=== PATIENT | male | born 1955 | race African-American/Black ===

== ENCOUNTER 2018-09-05 23:58 | Emergency (ER) | payer OTHER ==
[2018-09-06 00:13] VITALS: BP 112/77; PULSE 105; TEMP 98.7; BMI 34.0
[2018-09-06] MEDS ORDERED: SODIUM CHLORIDE 500 ML IV STA (00:14)
[2018-09-06] MEDS ORDERED: ASPIRIN 325 MG TABLET PO ONE (00:14)
--- NOTE | 2018-09-06 00:25 | PDOC ---
History of Present Illness - General Chief Complaint: Chest Pain Stated Complaint: FALL/BACK LACERATION/CHESTPAIN Time Seen by Provider: 09/06/18 00:14 History Source: Patient Exam Limitations: No Limitations - History of Present Illness Initial Comments: 09/06/18 00:20 62YOM with h/o CAD (s/p MIx4 per his report), HTN, HLD, NIDDM, pulmonary embolism, DVTs, and Doss's disease, who p/w gradual onset substernal chest pressure while he was laying down resting tonight. He stood up to use the restroom because as the pain ramped up he began to feel nauseated and thought he was going to vomit. On the way to the restroom he fell and lacerated his lower back on glass. Notes worsening chest pain, and nausea, states this feels "very similar" to his prior [place]. Took one NTG at home without relief. Did not take ASA at home after the onset. Not on daily ASA regimen. Past History - Past Medical History Allergies/Adverse Reactions: Allergies Allergy/AdvReac Type Severity Reaction Status Date / Time egg Allergy Verified 09/06/18 00:11 Fish Containing Products Allergy Verified 09/06/18 00:11 peanut Allergy Verified 09/06/18 00:11 penicillin V [Penicillin V] Allergy Verified 09/06/18 00:11 shellfish derived Allergy Verified 09/06/18 00:11 Whole wheat Allergy Unknown Hives Uncoded 09/06/18 00:11 NUTS Allergy Uncoded 09/06/18 00:11 Home Medications: Ambulatory Orders Albuterol Sulfate Inhaler - [Ventolin HFA Inhaler -] 1 - 2 inh IH Q4H PRN #0 inh 05/11/13 Allopurinol [Zyloprim -] 100 mg PO DAILY #30 tablet 05/11/13 Amlodipine Besylate [Norvasc -] 10 mg PO DAILY #30 tablet 05/11/13 Atorvastatin Ca [Lipitor] 80 mg PO HS #30 tab 05/11/13 Bupropion HBr [Aplenzin] 150 mg PO BID #30 tab.sr.24h 05/11/13 Clobetasol Prop 0.05% Top Cr [Temovate (Nf)] 0.05 gm TP BID PRN #1 tube Clopidogrel Bisulfate [Plavix -] 75 mg PO DAILY #30 tablet 05/11/13 Cyclobenzaprine HCl [Flexeril -] 10 mg PO TID PRN #90 tablet 05/11/13 Enalapril Maleate [Vasotec -] 10 mg PO DAILY #30 tablet 05/11/13 Escitalopram Oxalate [Lexapro -] 20 mg PO DAILY #30 tablet 05/11/13 Gabapentin [Neurontin -] 300 mg PO DAILY #0 capsule 05/11/13 Insulin (Novolog) [Novolog Flexpen -] 0 units SQ TIDAC #0 pen 05/11/13 Zolpidem Tartrate [Ambien] 10 mg PO HS PRN #0 tablet 05/11/13 Carvedilol [Coreg] 50 mg PO BID 12/11/17 Glipizide [Glucotrol -] 10 mg PO BID 12/11/17 Insulin (Levemir) [Levemir Flexpen -] 40 units SQ BID 12/11/17 Methotrexate Sodium [Methotrexate] 2.5 mg PO ASDIR 12/11/17 Oxycodone HCl/Acetaminophen [Percocet 5-325 mg Tablet] 1 - 2 tab PO PRN PRN 04/20 Clindamycin [Cleocin -] 300 mg PO Q6HPO #28 capsule 09/06/18 Anemia: No Cardiac Disorders: Yes COPD: No Diabetes: Yes HTN: Yes Psychiatric Problems: Yes (DEPRESSION) - Surgical History Cardiac Surgery: Yes (2 stents) Orthopedic Surgery: Yes (R. Ankle) - Suicide/Smoking/Psychosocial Hx Smoking History: Never smoked Have you smoked in the past 12 months: No Number of Cigarettes Smoked Daily: 1 Information on smoking cessation initiated: No 'Breaking Loose' booklet given: 05/07/13 Hx Alcohol Use: No Drug/Substance Use Hx: No Hx Substance Use Treatment: No Cardiac Specific PMH - Complaint Specific PMHX Pacemaker: Yes Review of Systems - Review of Systems Able to Perform ROS?: Yes Comments:: 09/06/18 00:25 GEN: no fever, chills, malaise, generalized weakness, or weight change HEENT: no ear pain, sore throat, vision change, or eye pain CV: chest pain, lightheadedness, no palpitations, syncope, or edema RESP: no cough, wheezing, or SOB GI: nausea, no abdominal pain, vomiting, diarrhea, constipation, or white/black/ bloody stool : no dysuria, hematuria, incontinence, retention, bleeding, or discharge MSK: no neck/back pain, muscle weakness/pain, or joint swelling/pain NEURO: no headache, seizure, vertigo, numbness, tingling, or focal weakness PSYCH: no substance use, no behavior change SKIN: no jaundice, no rash ROS otherwise negative except as noted in HPI *Physical Exam - Vital Signs Last Vital Signs Temp Pulse Resp BP Pulse Ox 98.7 F 105 H 20 112/77 99 09/06/18 00:12 09/06/18 00:12 09/06/18 00:12 09/06/18 00:12 09/06/18 00:12 - Physical Exam Comments: 09/06/18 00:26 GENERAL: nontoxic-appearing, A/Ox4, mild distress, answers questions appropriately, appears frustrated HEENT: bilateral exophthalmos, PERRLA, EOMI, moist mucous membranes NECK/BACK: no midline ttp, no spinal stepoff or deformity, no hematoma, full ROM , neck supple CARDIOVASCULAR: regular rate/rhythm, normal S1S2, no MGR, strong peripheral pulses, capillary refill <2 seconds, extremities wwp, no edema LUNGS/RESPIRATORY: no respiratory distress, CTAB GI/ABDOMEN: protuberant but not tight, symmetric hlze-on-ymze, normoactive BS, soft, no ttp, no midline pulsatile masses : no CVA tenderness EXTREMITIES: no muscle atrophy, no acute deformity SKIN: LACERATRION, skin otherwise warm and dry, no pallor, no jaundice, no rash , no bruising, no skin breakdown, no cuts, no lesions NEUROLOGICAL: GCS 15, CN II-XII grossly intact, 5/5 strength proximally and distally, no facial droop Heart Score/ECG Review - History History: Moderately suspicious - Electrocardiogram EKG: Non specific repolarization disturbance - Age Age: 45-65 - Risk Factors Risk Factors Heart Score: Yes Hx Hypercholesterolemia, Yes Hx Hypertension, Yes Hx Diabetes, Yes Positive family hx of cardiac disease, Yes Hx Obesity Based on the list above the patient has:: >/=3 risk factors or Hx atherosclerotic disease #1 09/05/18 23:55 NSR, rate 99, normal axis and intervals, septal Q waves and small SHAVON similar to prior EKG. ED Treatment Course - LABORATORY CBC & Chemistry Diagram: 09/06/18 00:45 09/06/18 00:45 - ADDITIONAL ORDERS Additional order review: Laboratory Results 09/06/18 09/06/18 09/06/18 00:45 00:45 00:45 PT with INR INR PTT (Actin FS) 29.0 Sodium Cancelled Potassium Cancelled Chloride Cancelled Carbon Dioxide Cancelled Anion Gap Cancelled BUN Cancelled Creatinine Cancelled Creat Clearance w eGFR Cancelled Random Glucose Cancelled Calcium Cancelled Magnesium Cancelled Total Bilirubin Cancelled AST Cancelled ALT Cancelled Alkaline Phosphatase Cancelled Creatine Kinase Cancelled Troponin I Cancelled Total Protein Cancelled Albumin Cancelled Anti-A Titer Cancelled Blood Type Cancelled Antibody Screen Cancelled 09/06/18 00:45 PT with INR 13.00 INR 1.10 H PTT (Actin FS) Sodium Potassium Chloride Carbon Dioxide Anion Gap BUN Creatinine Creat Clearance w eGFR Random Glucose Calcium Magnesium Total Bilirubin AST ALT Alkaline Phosphatase Creatine Kinase Troponin I Total Protein Albumin Anti-A Titer Blood Type Antibody Screen 09/06/18 00:45 RBC 4.28 MCV 98.7 H MCHC 34.6 RDW 14.1 D MPV 8.0 D Neutrophils % 49.9 Lymphocytes % 34.8 Monocytes % 9.5 Eosinophils % 4.5 Basophils % 1.3 D - RADIOLOGY Radiology Studies Ordered: Category Date Time Status CHEST X-RAY PORTABLE* [RAD] Stat Radiology 09/06/18 00:15 Taken - Medications Given in the ED: ED Medications Discontinued Medications Generic Name Dose Route Start Last Admin Trade Name Freq PRN Reason Stop Dose Admin Aspirin 325 mg 09/06/18 00:14 09/06/18 00:31 Asa - PO 09/06/18 00:15 325 mg ONCE ONE Administration Bacitracin 1 applic 09/06/18 01:49 09/06/18 01:56 Bacitracin - TP 09/06/18 01:50 1 applic ONCE ONE Administration Sodium Chloride 500 mls @ 500 mls/hr 09/06/18 00:14 09/06/18 01:06 Normal Saline - IV 09/06/18 01:13 500 mls/hr ASDIR STA Administration Morphine Sulfate 2 mg 09/06/18 01:32 09/06/18 01:55 Morphine Injection - IVPUSH 09/06/18 01:33 2 mg ONCE ONE Administration Sodium Chloride 500 ml 09/06/18 01:32 09/06/18 01:56 Normal Saline - IV 09/06/18 01:33 500 ml ONCE ONE Administration Medical Decision Making - Medical Decision Making 09/06/18 00:28 Adult Pt p/w chest pain. Initial Vital Signs Temp Pulse Resp BP Pulse Ox 98.7 F 105 H 20 112/77 99 09/06/18 00:12 09/06/18 00:12 09/06/18 00:12 09/06/18 00:12 09/06/18 00:12 Exam: As noted in Physical Exam section. DDX IBNLT: ACS, pericarditis, tamponade, aortic dissection, AAA, PTX, PE, esophageal tear, esophagitis (e.g. pill, infectious), esophageal stricture, esophageal FB, gastritis, PUD, pancreatitis, cholecystitis, cholangitis, colitis , bowel perforation, PNA/bronchitis, pleurisy, pleuritis, MVP, pulmonary HTN, musculoskeletal, panic/anxiety, etc. W/U ordered: CBCD CMP Troponin CK CKMB Coags T&S UA UCx EKG CXR TX ordered: monitor, ASA 324, O2 via NC EKG: Reviewed; results as noted in ECG Review section. Laboratory Tests 09/06/18 09/06/18 09/06/18 00:45 00:45 00:45 WBC 5.9 RBC 4.28 Hgb 14.6 Hct 42.3 MCV 98.7 H MCH 34.1 H MCHC 34.6 RDW 14.1 D Plt Count 249 D MPV 8.0 D Absolute Neuts (auto) 2.9 Neutrophils % 49.9 Lymphocytes % 34.8 Monocytes % 9.5 Eosinophils % 4.5 Basophils % 1.3 D Nucleated RBC % 0 PT with INR 13.00 INR 1.10 H PTT (Actin FS) Sodium Cancelled Potassium Cancelled Chloride Cancelled Carbon Dioxide Cancelled Anion Gap Cancelled BUN Cancelled Creatinine Cancelled Creat Clearance w eGFR Cancelled Random Glucose Cancelled Calcium Cancelled Magnesium Cancelled Total Bilirubin Cancelled AST Cancelled ALT Cancelled Alkaline Phosphatase Cancelled Creatine Kinase Cancelled Troponin I Cancelled Total Protein Cancelled Albumin Cancelled Anti-A Titer Blood Type Antibody Screen 09/06/18 09/06/18 00:45 00:45 WBC RBC Hgb Hct MCV MCH MCHC RDW Plt Count MPV Absolute Neuts (auto) Neutrophils % Lymphocytes % Monocytes % Eosinophils % Basophils % Nucleated RBC % PT with INR INR PTT (Actin FS) 29.0 Sodium Potassium Chloride Carbon Dioxide Anion Gap BUN Creatinine Creat Clearance w eGFR Random Glucose Calcium Magnesium Total Bilirubin AST ALT Alkaline Phosphatase Creatine Kinase Troponin I Total Protein Albumin Anti-A Titer Cancelled Blood Type Cancelled Antibody Screen Cancelled Patient refusing tDaP despite our strong recommendation. The patient states he does not want to stay for remaining cardiac workup and admission. I have a conversation with the patient about the potential risk of going home without thorough workup. He understands he may be having a heart attack or other serious cause of his continued chest pain. I express our strong recommendation that he stay for our initially planned ED workup and admission. He adamantly refuses, states wants to go home, walking out of the department. He has left the department before I am able to go through AMA paperwork with him. *DC/Admit/Observation/Transfer Diagnosis at time of Disposition: Fall from ground level, Skin abrasion Chest pain Qualifiers: Chest pain type: unspecified Qualified Code(s): R07.9 - Chest pain, unspecified - Discharge Dispostion Disposition: ELOPED Condition at time of disposition: Unchanged/Unknown Decision to Admit order: No - Prescriptions Prescriptions: Clindamycin [Cleocin -] 300 mg PO Q6HPO #28 capsule - Referrals Referrals: Rachell Meier [Primary Care Provider] - - Patient Instructions - Post Discharge Activity
[2018-09-06] MEDS ORDERED: ASPIRIN 81 MG CHEWABLE TABLETS ONE (00:28)
[2018-09-06 01:07] LABS: BASO % 1.3 % (0-2.0); EOS % 4.5 % (0-4.5); HEMATOCRIT 42.3 % (35.4-49); HEMOGLOBIN 14.6 GM/dL (11.7-16.9); LYMPH % 34.8 % (8-40); MCH 34.1 pg (25.7-33.7); MCHC 34.6 g/dl (32.0-35.9); MEAN CELL VOLUME 98.7 fl (80-96); MONO % 9.5 % (3.8-10.2); NEUT % 49.9 % (42.8-82.8); PLATELET COUNT 249 K/MM3 (134-434); RBC 4.28 M/mm3 (4.00-5.60); RDW 14.1 % (11.9-15.9); WHITE BLOOD COUNT 5.9 K/mm3 (4.0-10.0)
[2018-09-06] MEDS ORDERED: BACITRACIN 0.9 GM PACKET ONE (01:30)
[2018-09-06] MEDS ORDERED: SODIUM CHLORIDE 0.9% 500 ML INFUS.BAG IV ONE (01:32)
[2018-09-06] MEDS ORDERED: morphine CARPU-JECT 2 MG/1 ML DISP.SYRIN IVPUSH ONE (01:32)
[2018-09-06] MEDS ORDERED: DIPHTH,PERTUSS(ACELL),TET 0.5 ML DISP.SYRIN IM ONE ×2 (01:33→01:52)
[2018-09-06] MEDS ORDERED: MORPHINE SULFATE 2 MG/ML VIAL ONE (01:47)
[2018-09-06] MEDS ORDERED: BACITRACIN 15 GM TUBE TOPICAL OINTMENT TP ONE (01:49)
--- NOTE | 2018-09-06 01:49 | PDOC ---
Attending Attestation - HPI HPI: 09/06/18 01:56 The patient is a 62 year old male, with a significant PMH of CAD (s/p MIx4 per his report), HTN, HLD, NIDDM, pulmonary embolism, DVTs, and Doss's disease, who presents to the emeregncy department for evaluation of left sided chest pain , which began while lying down. He notes associated nausea which is similar to his past MIs. He states he went to go to the bathroom to vomit, when he got lightheaded, and fell back onto a glass table, cutting hit buttox. Patient reports taking one nitroglycerin at home with no relief. The patient denies chest pain, shortness of breath, headache and dizziness. Denies fever, chills, nausea, vomit, diarrhea and constipation. Denies dysuria, frequency, urgency and hematuria. Allergies: NKA Social history: No reported PCP: Dr. Meier - Physicial Exam PE: 09/06/18 01:56 GENERAL: Overweight. Awake, alert, and fully oriented, in no acute distress HEAD: No signs of trauma EYES: Protruding eyeballs not secondary to hyperthyroidism. PERRLA, EOMI, sclera anicteric, conjunctiva clear ENT: Auricles normal inspection, hearing grossly normal, nares patent, oropharynx clear without exudates. Moist mucosa NECK: Normal ROM, supple, no lymphadenopathy, JVD, or masses LUNGS: Breath sounds equal, clear to auscultation bilaterally. No wheezes, and no crackles HEART: Regular rate and rhythm, normal S1 and S2, no murmurs, rubs or gallops ABDOMEN: Soft, nontender, normoactive bowel sounds. No guarding, no rebound. No masses BACK: (+) small subcentimeter glass shard to right buttock. (+)shallow cuts to butt EXTREMITIES: (+)1cm laceration to left upper thigh. Normal range of motion, no edema. No clubbing or cyanosis. No cords, erythema, or tenderness NEUROLOGICAL: Cranial nerves II through XII grossly intact. Normal speech, normal gait SKIN: (+)lesions due to ehraclio disease. Warm, Dry, normal turgor, no rashes. <Makenzie Smith - Last Filed: 09/06/18 01:56> - Resident Resident Name: Sirisha Khan - ED Attending Attestation I have performed the following: I have examined & evaluated the patient, The case was reviewed & discussed with the resident, I agree w/resident's findings & plan - Medical Decision Making 09/06/18 01:40 Pt has small glass shards that I removed from his buttock area. He complains of chest pain. He is asking for relief of the chest pain. 09/06/18 02:47 Pt given morphine; however he is refusing another blood draw. Pt's first enzyme was hemolyzed. Pt wants to sign out. <Marcie Marley - Last Filed: 09/06/18 02:48> Attestations - Attestations 09/06/18 01:56 Documentation prepared by Makenzie Smith, acting as medical claims processor for Marcie Marley MD. <Makenzie Smith - Last Filed: 09/06/18 01:56>
[2018-09-06 02:04] LABS: INR 1.1 (0.83-1.09)
--- NOTE | 2018-09-06 11:39 | EKG ---
Test Reason : Blood Pressure : / mmHG Vent. Rate : 099 BPM Atrial Rate : 099 BPM P-R Int : 156 ms QRS Dur : 092 ms QT Int : 344 ms P-R-T Axes : 054 002 094 degrees QTc Int : 441 ms POOR DATA QUALITY, INTERPRETATION MAY BE ADVERSELY AFFECTED NORMAL SINUS RHYTHM POSSIBLE LEFT ATRIAL ENLARGEMENT SEPTAL INFARCT (CITED ON OR BEFORE 19-MAR-2010) ABNORMAL ECG WHEN COMPARED WITH ECG OF 11-DEC-2017 12:39, NONSPECIFIC T WAVE ABNORMALITY NO LONGER EVIDENT IN INFERIOR LEADS Confirmed by REFUGIO RANGEL, MERLY ([id number]) on 09/06/2018 11:39:31 AM Referred By: Confirmed By:MERLY HUFF MD
== END 2018-09-06 03:45 | disposition left against medical advice (07) ==
LOC: JER 23:58
PROC: 3E0337Z Introduction of Electrolytic and Water Balance Substance into Peripheral Vein, Percutaneous Approach (ICD-10-PCS; principal; 2018-09-05)
PROC: 3E033NZ Introduction of Analgesics, Hypnotics, Sedatives into Peripheral Vein, Percutaneous Approach (ICD-10-PCS; 2018-09-05)
DX: R07.9 Chest pain, unspecified (principal); S31.812A Laceration with foreign body of right buttock, initial encounter; S71.122A Laceration with foreign body, left thigh, initial encounter; W01.110A Fall on same level from slipping, tripping and stumbling with subsequent striking against sharp glass, initial encounter; Y93.89 Activity, other specified; Y92.038 Other place in apartment as the place of occurrence of the external cause; Y99.8 Other external cause status; I25.10 Atherosclerotic heart disease of native coronary artery without angina pectoris; I10 Essential (primary) hypertension; Z95.5 Presence of coronary angioplasty implant and graft; E11.9 Type 2 diabetes mellitus without complications; Z79.4 Long term (current) use of insulin; E78.00 Pure hypercholesterolemia, unspecified; Z86.718 Personal history of other venous thrombosis and embolism; Z86.711 Personal history of pulmonary embolism; Z79.01 Long term (current) use of anticoagulants; F32.9 Major depressive disorder, single episode, unspecified
CPT/HCPCS: 36415; 71045-TC-FY; 85025; 85610; 85730; 93005; 93010; 96361; 96374; 99283-25

== ENCOUNTER 2018-09-06 23:26 | Emergency (ER) | payer OTHER ==
--- NOTE | 2018-09-06 23:59 | PDOC ---
History of Present Illness - General Stated Complaint: INTOX Time Seen by Provider: 09/06/18 23:32 History Source: Old Records Exam Limitations: Other (combative, refusing medical attention) - History of Present Illness Initial Comments: 09/07/18 00:04 History obtained by triage notes and old records Pt is a 62yo M with PMH of CAD s/p stent/bypass, PE, DVT, HTN, NIDDM, Ricardo Disease BIBA for intoxication. Pt refusing to be seen and treated. Pt was found arguing and resisting security to be seen. Walked up ambulance bay Past History - Past Medical History Allergies/Adverse Reactions: Allergies Allergy/AdvReac Type Severity Reaction Status Date / Time egg Allergy Verified 09/06/18 00:11 Fish Containing Products Allergy Verified 09/06/18 00:11 peanut Allergy Verified 09/06/18 00:11 penicillin V [Penicillin V] Allergy Verified 09/06/18 00:11 shellfish derived Allergy Verified 09/06/18 00:11 Whole wheat Allergy Unknown Hives Uncoded 09/06/18 00:11 NUTS Allergy Uncoded 09/06/18 00:11 Home Medications: Ambulatory Orders Albuterol Sulfate Inhaler - [Ventolin HFA Inhaler -] 1 - 2 inh IH Q4H PRN #0 inh 05/11/13 Allopurinol [Zyloprim -] 100 mg PO DAILY #30 tablet 05/11/13 Amlodipine Besylate [Norvasc -] 10 mg PO DAILY #30 tablet 05/11/13 Atorvastatin Ca [Lipitor] 80 mg PO HS #30 tab 05/11/13 Bupropion HBr [Aplenzin] 150 mg PO BID #30 tab.sr.24h 05/11/13 Clobetasol Prop 0.05% Top Cr [Temovate (Nf)] 0.05 gm TP BID PRN #1 tube Clopidogrel Bisulfate [Plavix -] 75 mg PO DAILY #30 tablet 05/11/13 Cyclobenzaprine HCl [Flexeril -] 10 mg PO TID PRN #90 tablet 05/11/13 Enalapril Maleate [Vasotec -] 10 mg PO DAILY #30 tablet 05/11/13 Escitalopram Oxalate [Lexapro -] 20 mg PO DAILY #30 tablet 05/11/13 Gabapentin [Neurontin -] 300 mg PO DAILY #0 capsule 05/11/13 Insulin (Novolog) [Novolog Flexpen -] 0 units SQ TIDAC #0 pen 05/11/13 Zolpidem Tartrate [Ambien] 10 mg PO HS PRN #0 tablet 05/11/13 Carvedilol [Coreg] 50 mg PO BID 12/11/17 Glipizide [Glucotrol -] 10 mg PO BID 12/11/17 Insulin (Levemir) [Levemir Flexpen -] 40 units SQ BID 12/11/17 Methotrexate Sodium [Methotrexate] 2.5 mg PO ASDIR 12/11/17 Oxycodone HCl/Acetaminophen [Percocet 5-325 mg Tablet] 1 - 2 tab PO PRN PRN 04/20 Clindamycin [Cleocin -] 300 mg PO Q6HPO #28 capsule 09/06/18 Anemia: No Cardiac Disorders: Yes COPD: No Diabetes: Yes HTN: Yes Hypercholesterolemia: Yes Psychiatric Problems: Yes (DEPRESSION) - Surgical History Cardiac Surgery: Yes (2 stents) Orthopedic Surgery: Yes (R. Ankle) - Suicide/Smoking/Psychosocial Hx Smoking History: Never smoked Have you smoked in the past 12 months: No Number of Cigarettes Smoked Daily: 1 'Breaking Loose' booklet given: 05/07/13 Hx Alcohol Use: No Drug/Substance Use Hx: No Hx Substance Use Treatment: No Review of Systems - Review of Systems Able to Perform ROS?: No (pt left before medical ev) *Physical Exam - Physical Exam Comments: 09/07/18 00:06 Unable to perform, pt left before evaluation Medical Decision Making - Medical Decision Making 09/07/18 00:06 62yo M with PMH of CAD s/p stent/bypass, PE, DVT, DM, Ricardo Disease BIBA for intoxication according to triage note. Pt was here yesterday for chest pain and left AMA. pt walked out into ambulance bay. Security was holding pt behind but pt was resisting. Pt was offered medical screening but was refusing to be seen. Pt is walking with normal gait, no slurred speech, does not appear to be clinically intoxicated and therefore is able to make decisions. Pt left AMA *DC/Admit/Observation/Transfer Diagnosis at time of Disposition: Intoxication - Discharge Dispostion Disposition: AGAINST MEDICAL ADVICE - Referrals - Patient Instructions - Post Discharge Activity
== END 2018-09-06 23:59 | disposition left against medical advice (07) ==
LOC: JER 23:26
DX: Z53.21 Procedure and treatment not carried out due to patient leaving prior to being seen by health care provider (principal)

== ENCOUNTER 2018-10-10 21:01 | Emergency (ER) | payer OTHER ==
--- NOTE | 2018-10-10 21:15 | PDOC ---
Rapid Medical Evaluation Medical Evaluation: Allergies Allergy/AdvReac Type Severity Reaction Status Date / Time egg Allergy Verified 09/06/18 00:11 Fish Containing Products Allergy Verified 09/06/18 00:11 peanut Allergy Verified 09/06/18 00:11 penicillin V [Penicillin V] Allergy Verified 09/06/18 00:11 shellfish derived Allergy Verified 09/06/18 00:11 Whole wheat Allergy Unknown Hives Uncoded 09/06/18 00:11 NUTS Allergy Uncoded 09/06/18 00:11 I have performed a brief in-person evaluation of this patient. The patient presents with a chief complaint of: Hx of DM, MD x2, depression, skin cancer, PE (on Plavix and Xarelto) hx substernal dull CP along with SOB; started yesterday and got worse today; also states his sugar was 567 around 1 hr ago ; took 10 units of insulin and 50 units of Levemir after noting the sugar ; of note, patient was seen in ED last month for CP and had signed out AMA Pertinent physical exam findings: In NAD I have ordered the following: Labs, EKG, CXR The patient will proceed to the ED for further evaluation. 10/10/18 21:12
[2018-10-10 21:16] VITALS: TEMP 98.3; BMI 32.0
[2018-10-10] MEDS ORDERED: morphine CARPU-JECT 4 MG/1 ML DISP.SYRIN IVPUSH ONE (22:06)
[2018-10-10] MEDS ORDERED: ASPIRIN 81 MG CHEWABLE TABLETS PO ONE (22:09)
--- NOTE | 2018-10-10 22:10 | PDOC ---
History of Present Illness - General Chief Complaint: Chest Pain Stated Complaint: CHEST HURT Time Seen by Provider: 10/10/18 21:12 History Source: Patient Exam Limitations: No Limitations - History of Present Illness Initial Comments: 10/10/18 22:10 62 yo M with h/o CAD (ID x3), HTN, HLD, NIDDM, pulmonary embolism , DVTs (x3), and Doss's disease who presents with one day history of worsening chest pain. He describes 02/10 constant substernal chest pressure radiating to back. He states the pain has been worsening over time. Not associated with exertion and not relieved by nitro or rest. No aggrevating or alleviating factors. Associated with dysnea on exertion, diaphoresis and feeling of heaviness of his legs. He states he until recently he could walk 5 blocks and now has trouble with minimal physical activity. Denies palpitations, abdominal pain, nausea, vomiting, fever or chills. Timing/Duration: 24 hours Severity: moderate Associated Symptoms: reports: diaphoresis, shortness of breath Aspirin Received prior to arrival: Yes: 325 mg x 1, provided by ED Past History - Travel Traveled outside of the country in the last 30 days: No Close contact w/someone who was outside of country & ill: No - Past Medical History Allergies/Adverse Reactions: Allergies Allergy/AdvReac Type Severity Reaction Status Date / Time egg Allergy Verified 10/10/18 21:16 Fish Containing Products Allergy Verified 10/10/18 21:16 peanut Allergy Verified 10/10/18 21:16 penicillin V [Penicillin V] Allergy Verified 10/10/18 21:16 shellfish derived Allergy Verified 10/10/18 21:16 Whole wheat Allergy Unknown Hives Uncoded 10/10/18 21:16 NUTS Allergy Uncoded 10/10/18 21:16 Home Medications: Ambulatory Orders Albuterol Sulfate Inhaler - [Ventolin Hfa Inhaler -] 1 puff IH DAILY 10/10/18 Allopurinol [Zyloprim -] 100 mg PO DAILY 10/10/18 Amlodipine Besylate [Norvasc -] 5 mg PO DAILY 10/10/18 Atorvastatin Ca [Lipitor] 80 mg PO HS 10/10/18 Bupropion HCl [Wellbutrin Sr] 150 mg PO BID 10/10/18 Carvedilol [Coreg -] 25 mg PO BID 10/10/18 Clopidogrel Bisulfate [Plavix] 75 mg PO DAILY 10/10/18 Enalapril Maleate [Vasotec -] 10 mg PO DAILY 10/10/18 Escitalopram Oxalate [Lexapro -] 20 mg PO DAILY 10/10/18 Gabapentin 900 mg PO TID 10/10/18 Glipizide [Glipizide ER] 10 mg PO DAILY 10/10/18 Insulin (LOG) Aspart [NovoLOG -] 0 unit SQ 10/10/18 Insulin Detemir [Levemir Flextouch] 40 unit SQ BID 10/10/18 Methotrexate Sodium [Methotrexate] 2.5 mg PO DAILY 10/10/18 Rivaroxaban [Xarelto -] 20 mg PO DAILY 10/10/18 Trazodone HCl 150 mg PO DAILY 10/10/18 Anemia: No Cardiac Disorders: Yes (ID x 2, PE, DVT) COPD: No Diabetes: Yes HTN: Yes Hypercholesterolemia: Yes Psychiatric Problems: Yes (DEPRESSION) - Surgical History Cardiac Surgery: Yes (2 stents) Orthopedic Surgery: Yes (R. Ankle) - Suicide/Smoking/Psychosocial Hx Smoking History: Current some day smoker Have you smoked in the past 12 months: Yes Number of Cigarettes Smoked Daily: 3 Information on smoking cessation initiated: No 'Breaking Loose' booklet given: 05/07/13 Hx Alcohol Use: Yes (social) Drug/Substance Use Hx: No Hx Substance Use Treatment: No Review of Systems - Review of Systems Able to Perform ROS?: Yes Is the patient limited Palauan proficient: No Constitutional: Yes: Diaphoresis, Weakness. No: Chills, Fever HEENTM: No: Recent change in vision Respiratory: Yes: SOB with Exertion. No: Cough, Wheezing Cardiac (ROS): Yes: Chest Pain ABD/GI: Yes: Abdominal Distended. No: Abdominal cramping : No: Burning, Dysuria Musculoskeletal: No: Joint Swelling, Joint Stiffness Neurological: No: Headache, Paresthesia *Physical Exam - Vital Signs Last Vital Signs Temp Pulse Resp BP Pulse Ox 98.3 F 109 H 18 96/69 99 10/10/18 21:13 10/10/18 21:13 10/10/18 21:13 10/10/18 21:13 10/10/18 21:29 - Physical Exam General Appearance: Yes: Appropriately Dressed, Mild Distress HEENT: positive: ANAI, Normal ENT Inspection, Normal Voice Neck: positive: Trachea midline, Supple Respiratory/Chest: positive: Normal Breath Sounds, Crackles (fine crackles at bases). negative: Respiratory Distress, Accessory Muscle Use Cardiovascular: positive: S1, S2, Edema, Tachycardia. negative: JVD, Murmur Vascular Pulses: Dorsalis-Pedis (R): 2+, Doralis-Pedis (L): 2+ Gastrointestinal/Abdominal: positive: Normal Bowel Sounds, Tender, Soft. 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 Given history of multiple embolic events differential includes but not limited to ACS, PE, and Acute CHF. Will order cardiac profile, CBC, CMP and BNP. 10/11/18 00:37 Initial labs have returned wnl . However given his risk factors for embolic events the decision has been made to place patient on Observation to [facility]. However he as refused and would now like to leave AMA. PATIENT ADAMANTLY REFUSES HOSPITALIZATION AND WANTS TO LEAVE AGAINST MEDICAL ADVICE. I EXPLAINED TO PATIENT THAT AGAINST MEDICAL ADVICE IS DANGEROUS AND CAN LEAD TO WORSENING OF CONDITION, PERMANENT DISABILITY, AND EVEN . I USED LAY TERMINOLOGY. I ANSWERED ALL QUESTIONS. ITS CLEAR TO ME THAT HE UNDERSTANDS THE RISKS AND BENEFITS OF CONTINUOUS HOSPITAL STAY AND LEAVING AGAINST MEDICAL ADVISE. HE HAS THE CAPACITY TO MAKE HIS OWN DECISIONS. HE AGREES TO FOLLOW UP WITH HIS PRIMARY MEDICAL DOCTOR TOMORROW AND RETURN TO THE EMERGENCY DEPARTMENT IF SYMPTOMS WORSEN. *DC/Admit/Observation/Transfer Diagnosis at time of Disposition: Chest pain Qualifiers: Chest pain type: unspecified Qualified Code(s): R07.9 - Chest pain, unspecified - Referrals - Patient Instructions - Post Discharge Activity
[2018-10-10] MEDS ORDERED: morphine SULFATE 4 MG/ML VIAL ONE (22:12)
[2018-10-10] MEDS ORDERED: ASPIRIN 81 MG CHEWABLE TABLETS ONE (22:12)
[2018-10-10 22:22] LABS: BASO % 0.6 % (0-2.0); EOS % 4.3 % (0-4.5); HEMATOCRIT 45.2 % (35.4-49); HEMOGLOBIN 15.2 GM/dL (11.7-16.9); LYMPH % 36.4 % (8-40); MCH 32.6 pg (25.7-33.7); MCHC 33.7 g/dl (32.0-35.9); MEAN CELL VOLUME 96.7 fl (80-96); MEAN PLT VOLUME 8.5 fl (7.5-11.1); MONO % 9.9 % (3.8-10.2); NEUT % 48.8 % (42.8-82.8); PLATELET COUNT 241 K/MM3 (134-434); RBC 4.67 M/mm3 (4.00-5.60); RDW 13.8 % (11.9-15.9); WHITE BLOOD COUNT 5.5 K/mm3 (4.0-10.0)
[2018-10-10 23:00] LABS: ALBUMIN 3.8 g/dl (3.4-5.0); ALK PHOS 74 U/L (45-117); ANION GAP 12 MMOL/L (8-16); BILIRUBIN,TOTAL 0.4 mg/dL (0.2-1); BLOOD UREA NITROGEN 17 mg/dL (7-18); CALCIUM 9.3 mg/dL (8.5-10.1); CHLORIDE 98 mmol/L (98-107); CO2 22 mmol/L (21-32); CREATININE 1.8 mg/dL (0.55-1.3); POTASSIUM 4.2 mmol/L (3.5-5.1); SGOT/AST 24 U/L (15-37); SGPT/ALT 31 U/L (13-61); SODIUM 132 mmol/L (136-145); TOT PROT 6.6 g/dl (6.4-8.2)
[2018-10-10 23:04] LABS: GLUCOSE,RANDOM 500 mg/dL (74-106)
[2018-10-10] MEDS ORDERED: INSULIN (NOVOLOG) ASPART 100 UNITS/ML 10ML VIAL SQ ONE (23:08)
[2018-10-10] MEDS ORDERED: INSULIN REGULAR HUMAN 100 UNITS/ML *VIAL ONE (23:11)
[2018-10-10 23:28] VITALS: PULSE 88
--- NOTE | 2018-10-11 00:13 | PDOC ---
Documentation entered by Yisel Swan SCRIBE, acting as scribe for Marcie Marley MD. Marcie Marley MD: This documentation has been prepared by the philibe, Yisel Swan SCRIBE, under my direction and personally reviewed by me in its entirety. I confirm that the documentation accurately reflects all work, treatment, procedures, and medical decision making performed by me. Attending Attestation - Resident Resident Name: Franki Irwin - ED Attending Attestation I have performed the following: I have examined & evaluated the patient, The case was reviewed & discussed with the resident, I agree w/resident's findings & plan - HPI HPI: 10/10/18 23:17 The patient is a 63 year old male with a significant past medical history of CAD , DVTs, hypertension, hyperlipidemia, diabetes, pulmonary embolism and Ricardo disease who presents to the emergency department with chest pain for 2 days. The patient states that he experienced an sudden onset of 9/10 constant substernal chest pain, describes as pressure-like with radiation to his back. The patient says that his chest pain has worsened since yesterday prompting him to come to the ED. he reports some associated dyspnea on exertion, diaphoresis and leg heaviness. He states that he has been experiencing some increased difficulties with physical activity lately. The patient denies any relief with use of nitro or with rest. He denies any palpitations, abdominal pain, nausea, vomiting, diarrhea, constipation, fever or chills. The patient denies any other complaints. - Physicial Exam PE: GENERAL: Awake, alert, and fully oriented, in no acute distress HEAD: No signs of trauma EYES: PERRLA, EOMI, sclera anicteric, conjunctiva clear ENT: Auricles normal inspection, hearing grossly normal, nares patent, oropharynx clear without exudates. Moist mucosa NECK: Normal ROM, supple, no lymphadenopathy, JVD, or masses LUNGS: Breath sounds equal, clear to auscultation bilaterally. No wheezes, and no crackles HEART: Regular rate and rhythm, normal S1 and S2, no murmurs, rubs or gallops ABDOMEN: Soft, nontender, normoactive bowel sounds. No guarding, no rebound. No masses EXTREMITIES: Normal range of motion, no edema. No clubbing or cyanosis. No cords, erythema, or tenderness NEUROLOGICAL: Cranial nerves II through XII grossly intact. Normal speech, normal gait SKIN: Warm, Dry, normal turgor, no rashes or lesions noted. 10/11/18 00:13 - Medical Decision Making 10/11/18 00:22 Pt will be admitted for chest pain as a telemetry obs. 10/11/18 00:24 Pt is refusing to stay in the hospital and wants to sign AMA. He will be allowed to go, as he looks extremely comfortable
[2018-10-11 00:35] VITALS: BP 100/63
--- NOTE | 2018-10-11 11:41 | EKG ---
Test Reason : Blood Pressure : / mmHG Vent. Rate : 101 BPM Atrial Rate : 101 BPM P-R Int : 160 ms QRS Dur : 088 ms QT Int : 378 ms P-R-T Axes : 059 000 047 degrees QTc Int : 490 ms SINUS TACHYCARDIA POSSIBLE LEFT ATRIAL ENLARGEMENT SEPTAL INFARCT (CITED ON OR BEFORE 19-MAR-2010) ABNORMAL ECG WHEN COMPARED WITH ECG OF 05-SEP-2018 23:55, NO SIGNIFICANT CHANGE WAS FOUND Confirmed by BRENT RANGEL, YAMEL ([id number]) on 10/11/2018 11:41:16 AM Referred By: Confirmed By:YAMEL KENNEDY MD
== END 2018-10-11 01:10 | disposition left against medical advice (07) ==
LOC: JER 21:01
PROC: 3E033NZ Introduction of Analgesics, Hypnotics, Sedatives into Peripheral Vein, Percutaneous Approach (ICD-10-PCS; principal; 2018-10-10)
PROC: 3E013VG Introduction of Insulin into Subcutaneous Tissue, Percutaneous Approach (ICD-10-PCS; 2018-10-10)
DX: R07.9 Chest pain, unspecified (principal); I25.10 Atherosclerotic heart disease of native coronary artery without angina pectoris; I10 Essential (primary) hypertension; Z95.5 Presence of coronary angioplasty implant and graft; I25.2 Old myocardial infarction; E78.5 Hyperlipidemia, unspecified; E11.9 Type 2 diabetes mellitus without complications; Z79.4 Long term (current) use of insulin; F32.9 Major depressive disorder, single episode, unspecified; Z86.711 Personal history of pulmonary embolism; Z86.718 Personal history of other venous thrombosis and embolism; Z79.01 Long term (current) use of anticoagulants; Z85.828 Personal history of other malignant neoplasm of skin; F17.210 Nicotine dependence, cigarettes, uncomplicated
CPT/HCPCS: 36415; 71045-TC-FY; 80053; 83880; 84484; 85025; 93005; 93010; 96372; 96374; 99284-25

== ENCOUNTER 2019-01-17 09:35 | Emergency (ER) | payer OTHER ==
[2019-01-17 09:41] VITALS: BMI 32.7
[2019-01-17] MEDS ORDERED: SODIUM CHLORIDE 1,000 ML IV STA ×2 (09:59→14:13)
[2019-01-17] MEDS ORDERED: morphine CARPU-JECT 2 MG/1 ML DISP.SYRIN IVPUSH ONE ×3 (09:59→14:13)
[2019-01-17] MEDS ORDERED: MORPHINE SULFATE 2 MG/ML VIAL ONE ×3 (10:08→14:17)
[2019-01-17 10:33] LABS: BASO % 0.8 % (0-2.0); EOS % 10.7 % (0-4.5); HEMATOCRIT 42.4 % (35.4-49); HEMOGLOBIN 14.8 GM/dL (11.7-16.9); LYMPH % 31.1 % (8-40); MCH 34.7 pg (25.7-33.7); MCHC 34.9 g/dl (32.0-35.9); MEAN CELL VOLUME 99.3 fl (80-96); MEAN PLT VOLUME 7.2 fl (7.5-11.1); MONO % 4.4 % (3.8-10.2); PLATELET COUNT 258 K/MM3 (134-434); RBC 4.27 M/mm3 (4.00-5.60); RDW 15.9 % (11.9-15.9); WHITE BLOOD COUNT 6.7 K/mm3 (4.0-10.0)
--- NOTE | 2019-01-17 10:42 | PDOC ---
History of Present Illness - General Chief Complaint: Pain, Acute Stated Complaint: ABD PAIN Time Seen by Provider: 01/17/19 09:52 History Source: Patient Exam Limitations: No Limitations - History of Present Illness Travel History: No Initial Comments: 01/17/19 10:20 63-year-old male presents to ED with brown watery intermittent diarrhea for the past 4 months along with now left flank pain radiating to his back without fever , chills, nausea weakness, or feelings of dehydration. Patient states is able to tolerate by mouth and was seen by his PCP 2 months ago and was told he may have a bacterial in his stool and needed to come back for retesting but failed to. Patient states no recent travel, recent illness drinking out of [place] or streams or previous antibiotics prior to onset of diarrhea. Patient states does not take laxatives on a daily basis but does state history of Graves' disease, dyslipidemia, diabetes and hypertension Timing/Duration: reports: intermittent Quality: reports: mild, sharpness Abdominal Pain Onset Location: reports: flank (left) Pain Radiation: reports: back Activities at Onset: reports: none Aggravating Factors: improves with: None Alleviating Factors: improves with: None Past History - Travel Traveled outside of the country in the last 30 days: No Close contact w/someone who was outside of country & ill: No - Past Medical History Allergies/Adverse Reactions: Allergies Allergy/AdvReac Type Severity Reaction Status Date / Time egg Allergy Verified 01/17/19 09:37 Fish Containing Products Allergy Verified 01/17/19 09:37 peanut Allergy Verified 01/17/19 09:37 penicillin V [Penicillin V] Allergy Verified 01/17/19 09:37 shellfish derived Allergy Verified 01/17/19 09:37 Whole wheat Allergy Unknown Hives Uncoded 01/17/19 09:37 NUTS Allergy Uncoded 01/17/19 09:37 Home Medications: Ambulatory Orders Albuterol Sulfate Inhaler - [Ventolin Hfa Inhaler -] 1 puff IH DAILY 10/10/18 Allopurinol [Zyloprim -] 100 mg PO DAILY 10/10/18 Amlodipine Besylate [Norvasc -] 5 mg PO DAILY 10/10/18 Atorvastatin Ca [Lipitor] 80 mg PO HS 10/10/18 Bupropion HCl [Wellbutrin Sr] 150 mg PO BID 10/10/18 Carvedilol [Coreg -] 25 mg PO BID 10/10/18 Clopidogrel Bisulfate [Plavix] 75 mg PO DAILY 10/10/18 Enalapril Maleate [Vasotec -] 10 mg PO DAILY 10/10/18 Escitalopram Oxalate [Lexapro -] 20 mg PO DAILY 10/10/18 Gabapentin 900 mg PO TID 10/10/18 Glipizide [Glipizide ER] 10 mg PO DAILY 10/10/18 Insulin (LOG) Aspart [NovoLOG -] 0 unit SQ 10/10/18 Insulin Detemir [Levemir Flextouch] 40 unit SQ BID 10/10/18 Methotrexate Sodium [Methotrexate] 2.5 mg PO DAILY 10/10/18 Rivaroxaban [Xarelto -] 20 mg PO DAILY 10/10/18 Trazodone HCl 150 mg PO DAILY 10/10/18 Oxycodone HCl/Acetaminophen [Percocet 5-325 mg Tablet] 1 - 2 tab PO Q6H PRN #12 tab MDD 4 01/17/19 Anemia: No Cancer: Yes (skin) Cardiac Disorders: Yes ([place] x 3, PE, DVT) COPD: No Diabetes: Yes HTN: Yes Hypercholesterolemia: Yes Psychiatric Problems: Yes (DEPRESSION) - Surgical History Cardiac Surgery: Yes (2 stents) Orthopedic Surgery: Yes (R. Ankle) - Immunization History Immunization Up to Date: Yes - Suicide/Smoking/Psychosocial Hx Smoking History: Current some day smoker Have you smoked in the past 12 months: Yes Number of Cigarettes Smoked Daily: 3 Information on smoking cessation initiated: No 'Breaking Loose' booklet given: 05/07/13 Hx Alcohol Use: Yes (social) Drug/Substance Use Hx: No Hx Substance Use Treatment: No Patient Lives Alone: No Lives with/in: spouse/SO Review of Systems - Review of Systems Able to Perform ROS?: No Is the patient limited Somali proficient: No Constitutional: No: Symptoms Reported HEENTM: No: Symptoms Reported Respiratory: No: Symptoms reported Cardiac (ROS): No: Symptoms Reported ABD/GI: Yes: Diarrhea, Abdominal cramping. No: Nausea, Vomiting : No: Symptoms Reported Musculoskeletal: No: Symptoms Reported Integumentary: No: Symptoms Reported Neurological: No: Symptoms reported Hematologic/Lymphatic: No: Symptoms Reported *Physical Exam - Vital Signs Last Vital Signs Temp Pulse Resp BP Pulse Ox 98.3 F 82 18 129/81 98 01/17/19 09:37 01/17/19 09:37 01/17/19 09:37 01/17/19 09:37 01/17/19 09:37 - Physical Exam General Appearance: Yes: Nourished, Appropriately Dressed, Mild Distress HEENT: positive: EOMI, ANAI. negative: Pale Conjunctivae Neck: positive: Normal Thyroid, Supple Respiratory/Chest: positive: Lungs Clear, Normal Breath Sounds. negative: Respiratory Distress, Accessory Muscle Use Cardiovascular: positive: Regular Rhythm, Regular Rate. negative: Murmur Gastrointestinal/Abdominal: positive: Soft, Tenderness (left lower quadrant left flank) Musculoskeletal: positive: CVA Tenderness (L) Extremity: positive: Normal Inspection Integumentary: positive: Normal Color, Warm, Moist Neurologic: positive: Motor Strength 5/5 (ambulatory) Heart Score/ECG Review - ECG Intrepretation Rhythm: Regular Rhythm (Normal sinus rhythm at 85 bpm with fusion complexes. QTC 411 ms. Intervals are regular.) ED Treatment Course - LABORATORY CBC & Chemistry Diagram: 01/17/19 10:15 01/17/19 10:15 - RADIOLOGY Radiology Studies Ordered: Category Date Time Status ABDOMEN & PELVIS CT WITH CONTR [CT] Stat CT Scan 01/17/19 09:58 Ordered ABDOMEN & PELVIS CT WITH CONTR [CT] Stat CT Scan 01/17/19 09:58 Stop Req Medical Decision Making - Medical Decision Making 01/17/19 10:50 Chief complaint: Diarrhea 4 months now with left-sided abdominal pain without fever nausea or weight loss Exam patient with left lower quadrant left flank left CVA tenderness vital signs stable Plan: Labs, IV fluids, morphine, urine thyroid level secondary to history of Graves and abdominal CT with contrast 01/17/19 12:53 Laboratory Tests 10/10/18 10/10/18 01/17/19 21:26 21:26 10:15 WBC 6.7 Hgb 14.8 Hct 42.4 MCV 96.7 H 99.3 H MPV 7.2 L D Eosinophils % 4.3 10.7 H D Sodium 132 L Potassium Chloride Carbon Dioxide Anion Gap BUN Creatinine 1.8 H Est GFR (CKD-EPI)AfAm Est GFR (CKD-EPI)NonAf Random Glucose Calcium Magnesium Total Bilirubin AST ALT Alkaline Phosphatase Creatine Kinase Troponin I Total Protein Albumin TSH 01/17/19 10:15 WBC Hgb Hct MCV MPV Eosinophils % Sodium 139 Potassium 4.6 Chloride 104 Carbon Dioxide 29 Anion Gap 7 L BUN 11.2 Creatinine 1.5 H Est GFR (CKD-EPI)AfAm 57.01 Est GFR (CKD-EPI)NonAf 49.19 Random Glucose 132 H Calcium 9.0 Magnesium 2.4 Total Bilirubin 0.4 AST 40 H ALT 37 Alkaline Phosphatase 68 Creatine Kinase 115 Troponin I < 0.02 Total Protein 6.4 Albumin 3.7 TSH 3.25 Patient states feeling much better after receiving morphine. Patient currently and CT. Awaiting urine collection 01/17/19 14:35 Laboratory Tests 01/17/19 13:50 Ur Specific [place] 1.005 L Urine Nitrite Negative Urine Bilirubin Negative Ur Leukocyte Esterase Negative 01/17/19 16:01 No significant interval change from previous CT noted December 2017. Patient with bilateral renal simple cyst without gross interval change. Tiny fat containing umbilical hernia noted. Diverticulitis involving the distal descending proximal mid sigmoid without evidence of diverticulitis. Patient states feeling much better and will be discharged home. Pt will be recommended to follow up with junior sales representative. *DC/Admit/Observation/Transfer Diagnosis at time of Disposition: Flank pain, Diarrhea - Discharge Dispostion Disposition: HOME - Prescriptions Prescriptions: Oxycodone HCl/Acetaminophen [Percocet 5-325 mg Tablet] 1 - 2 tab PO Q6H PRN #12 tab MDD 4 PRN Reason: Pain - Referrals Referrals: ON STAFF,NOT [Primary Care Provider] - Po Wong MD [Staff Physician] - - Patient Instructions Printed Discharge Instructions: DI for Abdominal Pain-Adult, DI for Diarrhea and Traveler's Diarrhea -- Adult Additional Instructions: Please follow-up with referred gastrologist and eat foods that bind your stool such as starchy foods like potatoes, rice and avoid Green leaf vegetables. - Post Discharge Activity
[2019-01-17 11:12] LABS: ALBUMIN 3.7 g/dl (3.4-5.0); ALK PHOS 68 U/L (45-117); ANION GAP 7 MMOL/L (8-16); BILIRUBIN,TOTAL 0.4 mg/dL (0.2-1); BLOOD UREA NITROGEN 11.2 mg/dL (7-18); CHLORIDE 104 mmol/L (98-107); CO2 29 mmol/L (21-32); CREATININE 1.5 mg/dL (0.55-1.3); GLUCOSE,RANDOM 132 mg/dL (74-106); MAGNESIUM 2.4 mg/dL (1.8-2.4); POTASSIUM 4.6 mmol/L (3.5-5.1); SGOT/AST 40 U/L (15-37); SGPT/ALT 37 U/L (13-61); SODIUM 139 mmol/L (136-145); TOT PROT 6.4 g/dl (6.4-8.2)
[2019-01-17 14:26] LABS: URINE APPEARANCE CLEAR; URINE BILIRUBIN NEGATIVE (NEGATIVE); URINE COLOR YELLOW; URINE GLUCOSE (UA) NEGATIVE (NEGATIVE); URINE KETONE NEGATIVE (NEGATIVE); URINE LEUK ESTERASE NEGATIVE (NEGATIVE); URINE NITRITE NEGATIVE (NEGATIVE); URINE PROTEIN NEGATIVE (NEGATIVE); URINE UROBILINOGEN 0.2 mg/dL (0.2-1.0)
[2019-01-17 16:34] VITALS: TEMP 98
[2019-01-17 17:56] VITALS: BP 139/85; PULSE 64
--- NOTE | 2019-01-18 11:36 | EKG ---
Test Reason : Blood Pressure : / mmHG Vent. Rate : 085 BPM Atrial Rate : 085 BPM P-R Int : 156 ms QRS Dur : 086 ms QT Int : 346 ms P-R-T Axes : 066 004 -85 degrees QTc Int : 411 ms SINUS RHYTHM WITH FUSION COMPLEXES LOW VOLTAGE QRS NONSPECIFIC T WAVE ABNORMALITY ABNORMAL ECG WHEN COMPARED WITH ECG OF 10-OCT-2018 21:00, FUSION COMPLEXES ARE NOW PRESENT CRITERIA FOR SEPTAL INFARCT ARE NO LONGER PRESENT NONSPECIFIC T WAVE ABNORMALITY NOW EVIDENT IN INFERIOR LEADS QT HAS SHORTENED Confirmed by REFUGIO RNAGEL, MERYL ([id number]) on 01/18/2019 11:36:28 AM Referred By: Confirmed By:MERLY HUFF MD
== END 2019-01-17 16:25 | disposition home or self-care (01) ==
LOC: JER 09:35
PROC: 3E033NZ Introduction of Analgesics, Hypnotics, Sedatives into Peripheral Vein, Percutaneous Approach (ICD-10-PCS; principal; 2019-01-17)
PROC: 3E0337Z Introduction of Electrolytic and Water Balance Substance into Peripheral Vein, Percutaneous Approach (ICD-10-PCS; 2019-01-17)
DX: R10.32 Left lower quadrant pain (principal); R19.7 Diarrhea, unspecified; F17.210 Nicotine dependence, cigarettes, uncomplicated; E11.9 Type 2 diabetes mellitus without complications; I10 Essential (primary) hypertension; E78.00 Pure hypercholesterolemia, unspecified; F32.9 Major depressive disorder, single episode, unspecified
CPT/HCPCS: 36415; 74177-TC; 80053; 81003; 82550; 83735; 84443; 84484; 85025; 87086; 93005; 93010; 96361; 96374; 96375; 96376; 99284-25; J7030

== ENCOUNTER 2021-10-16 17:19 | Emergency (ER) | payer OTHER ==
[2021-10-16 17:40] VITALS: BP 96/61; PULSE 75; TEMP 98.2; BMI 28.7
== END 2021-10-16 19:05 | disposition left against medical advice (07) ==
LOC: JER 17:19 → JERFT 17:19 → JER 19:05
DX: R07.9 Chest pain, unspecified (principal)
CPT/HCPCS: 93005; 93010; 99281-25

== ENCOUNTER 2021-10-16 20:36 | Observation (INO) | payer OTHER ==
[2021-10-16 20:57] VITALS: BMI 28.7
[2021-10-16] MEDS ORDERED: ACETAMINOPHEN 1000 MG/100 ML BAG IVPB ONE (23:43)
[2021-10-17] MEDS ORDERED: ACETAMINOPHEN INJECTION 100 ML IVPB ONE (00:05)
[2021-10-17 00:50] LABS: BASO % 0.3 % (0-2.0); EOS % 4.5 % (0-4.5); HEMATOCRIT 38.8 % (35.4-49); HEMOGLOBIN 13.1 GM/dL (11.7-16.9); LYMPH % 30.6 % (8-40); MCHC 33.9 g/dl (32.0-35.9); MEAN CELL VOLUME 94.5 fl (80-96); MEAN PLT VOLUME 7.5 fl (7.5-11.1); MONO % 11.8 % (3.8-10.2); NEUT % 52.8 % (42.8-82.8); PLATELET COUNT 200 10^3/uL (134-434); RBC 4.11 M/mm3 (4.00-5.60); RDW 17.9 % (11.9-15.9); WHITE BLOOD COUNT 6.3 K/mm3 (4.0-10.0)
[2021-10-17 00:59] LABS: CALCIUM 8.5 mg/dL (8.5-10.1)
[2021-10-17 01:01] LABS: ALBUMIN 3.4 g/dl (3.4-5.0); BLOOD UREA NITROGEN 12.6 mg/dL (7-18)
[2021-10-17 01:03] LABS: CREATININE 1.2 mg/dL (0.55-1.3)
[2021-10-17 01:04] LABS: BILIRUBIN,TOTAL 0.5 mg/dL (0.2-1); TOT PROT 6.4 g/dl (6.4-8.2)
[2021-10-17] MEDS ORDERED: morphine CARPU-JECT 4 MG/1 ML DISP.SYRIN IVPUSH ONE (01:36)
[2021-10-17] MEDS ORDERED: morphine SULFATE 4 MG/ML VIAL ONE (01:42)
[2021-10-17] MEDS ORDERED: POTASSIUM CHLORIDE TABS 20 MEQ TABLET.ER (FP) PO ONE ×2 (04:06→04:30)
[2021-10-17 07:37] LABS: BASO % 1.2 % (0-2.0); EOS % 6.1 % (0-4.5); HEMATOCRIT 38.5 % (35.4-49); LYMPH % 38.5 % (8-40); MCH 32.1 pg (25.7-33.7); MCHC 33.8 g/dl (32.0-35.9); MEAN PLT VOLUME 7.9 fl (7.5-11.1); MONO % 9.8 % (3.8-10.2); NEUT % 44.4 % (42.8-82.8); PLATELET COUNT 195 10^3/uL (134-434); RBC 4.06 M/mm3 (4.00-5.60); RDW 18.3 % (11.9-15.9); WHITE BLOOD COUNT 5.3 K/mm3 (4.0-10.0)
[2021-10-17] MEDS: INSULIN SLIDING SCALE (NOVOLOG) 1 VIAL SQ SCH ×2 (07:39→11:34)
[2021-10-17 08:12] LABS: MAGNESIUM 2.3 mg/dL (1.8-2.4)
[2021-10-17 08:13] LABS: TOT PROT 5.9 g/dl (6.4-8.2)
[2021-10-17 08:14] LABS: ALBUMIN 3.1 g/dl (3.4-5.0); BLOOD UREA NITROGEN 10.4 mg/dL (7-18)
[2021-10-17 08:16] LABS: PHOSPHOROUS 3.7 mg/dL (2.5-4.9)
[2021-10-17 08:18] LABS: BILIRUBIN,TOTAL 0.7 mg/dL (0.2-1)
[2021-10-17] MEDS ORDERED: ESCITALOPRAM OXALATE 10 MG TABLET ONE (09:05)
[2021-10-17] MEDS ORDERED: AMIODARONE HCL 200 MG TABLET ONE (09:05)
[2021-10-17] MEDS ORDERED: TICAGRELOR 90 MG TABLET PO ONE (09:11)
[2021-10-17] MEDS ORDERED: AMIODARONE HCL 200 MG TABLET PO SCH (10:00)
[2021-10-17] MEDS ORDERED: TICAGRELOR 90 MG TABLET PO SCH (10:00)
[2021-10-17] MEDS ORDERED: SACUBITRIL/VALSARTAN 24 MG-26 MG TABLET PO SCH (10:00)
[2021-10-17] MEDS ORDERED: METHOTREXATE 2.5 MG TABLET PO SCH (10:00)
[2021-10-17] MEDS ORDERED: PRAZOSIN HCL 2 MG CAPSULE PO SCH (10:00)
[2021-10-17] MEDS ORDERED: INSULIN (LEVEMIR) 100 UNITS/ML UNITS SQ SCH (10:00)
[2021-10-17] MEDS ORDERED: ESCITALOPRAM OXALATE 10 MG TABLET PO SCH (10:00)
[2021-10-17 13:52] VITALS: BP 124/78; PULSE 64; TEMP 97.4
[2021-10-17] MEDS ORDERED: RIVAROXABAN 15 MG TABLET PO SCH (18:00)
[2021-10-17] MEDS ORDERED: ATORVASTATIN CA 80 MG TABLET (FP) PO SCH (22:00)
== END 2021-10-17 13:30 | disposition home or self-care (01) ==
LOC: JER 20:36 → JERBED 10-17 01:15
PROVIDERS: ADMIT Hospitalist; ATTEND Nurse Practitioner Acute Care
PROC: 0HQGXZZ Repair Left Hand Skin, External Approach (ICD-10-PCS; principal; 2021-10-17)
PROC: 3E033NZ Introduction of Analgesics, Hypnotics, Sedatives into Peripheral Vein, Percutaneous Approach (ICD-10-PCS; 2021-10-17)
PROC: 3E0333Z Introduction of Anti-inflammatory into Peripheral Vein, Percutaneous Approach (ICD-10-PCS; 2021-10-17)
DX: R07.89 Other chest pain (principal); I48.91 Unspecified atrial fibrillation; I11.0 Hypertensive heart disease with heart failure; I25.10 Atherosclerotic heart disease of native coronary artery without angina pectoris; I50.9 Heart failure, unspecified; I25.2 Old myocardial infarction; E11.9 Type 2 diabetes mellitus without complications; F17.210 Nicotine dependence, cigarettes, uncomplicated; E78.5 Hyperlipidemia, unspecified; F32.A Depression, unspecified; S61.012A Laceration without foreign body of left thumb without damage to nail, initial encounter; W45.8XXA Other foreign body or object entering through skin, initial encounter; Y93.9 Activity, unspecified; Y92.9 Unspecified place or not applicable; Z85.828 Personal history of other malignant neoplasm of skin; Z85.51 Personal history of malignant neoplasm of bladder; Z79.84 Long term (current) use of oral hypoglycemic drugs; Z95.5 Presence of coronary angioplasty implant and graft; Z79.01 Long term (current) use of anticoagulants; Z88.0 Allergy status to penicillin; Z91.013 Allergy to seafood; Z91.018 Allergy to other foods
CPT/HCPCS: 12001-25; 36415; 71046-TC-FY; 80053; 80061; 82962; 83036; 83735; 84100; 84484; 85025; 93306-TC; 96374; 96375; 99285-25; C9803-CS; G0378; U0003; U0005